=== PATIENT | female | born 1995 | race Caucasian/White ===

== ENCOUNTER 2023-11-24 12:46 | Observation (INO) | payer BC, SELFPAY ==
[2023-11-24 12:54] VITALS: BP 135/88; BMI 34.4
[2023-11-24 13:55] LABS: Urine Albumin 2+ (Neg - Trace); Urine Bilirubin 1+ (Negative); Urine Character Slightly Cloudy (Clear); Urine Color Red; Urine Glucose Negative (Negative); Urine Ketone 1+ (Negative); Urine Leukocyte 1+ (Negative); Urine Nitrite Positive (Negative); Urine Occult Blood 4+ (Negative); Urine Urobilinogen Negative (Neg - 1+)
[2023-11-24 14:34] LABS: Urine Bacteria Many (Negative); Urine Mucus Few; Urine Red Blood Cell >100 /HPF (0-2); Urine White Cell 26-30 /HPF (0-5)
[2023-11-24] MEDS: ROCEPHIN 1.42860000000000009 MG IM (15:49)
== END 2023-11-24 15:56 | disposition home or self-care (01) ==
LOC: LDRP 12:46
PROVIDERS: ADMITTING PHYSICIAN Obstetrics & Gynecology
DX: O23.43 Unspecified infection of urinary tract in pregnancy, third trimester (principal); R10.9 Unspecified abdominal pain; J30.89 Other allergic rhinitis; J30.81 Allergic rhinitis due to animal (cat) (dog) hair and dander; Z3A.38 38 weeks gestation of pregnancy; Z87.440 Personal history of urinary (tract) infections; N39.0 Urinary tract infection, site not specified; R31.9 Hematuria, unspecified; O36.8330 Maternal care for abnormalities of the fetal heart rate or rhythm, third trimester, not applicable or unspecified
CPT/HCPCS: 81003; 81015; 87086; G0378

== ENCOUNTER 2023-12-02 18:58 | Inpatient (IN) | payer BC, SELFPAY ==
[2023-12-02 19:36] LABS: % Basophils 0.3 % (0-2); % Eosinophils 0.9 % (0-6); % Immature Granulocytes 1.9 % (0-0.5); % Lymphocytes 13.6 % (20.5-51.1); % Neutrophils 76.3 % (42.2-75.2); Absolute Eosinophils 0.1 10^3/uL (0-0.7); Absolute Immature Granulocytes 0.2 10^3/uL (0-0.05); Absolute Lymphocytes 1.6 10^3/uL (1.2-3.4); Absolute Monocytes 0.8 10^3/uL (0.1-0.6); Absolute Neutrophils 9.2 10^3/uL (1.4-6.5); Hematocrit 30.9 % (37.0-47.0); Hemoglobin 10.9 g/dL (12.0-16.0); Mean Corp Hgb Conc. 35.3 g/dL (33.0-37.0); Mean Corpuscular Hgb 30.7 pg (27.0-31.0); Mean Platelet Volume 11.8 fL (7.4-10.4); Nucleated Red Blood Cells % 0 %; Platelet Count 198 10^3/uL (130-400); Red Blood Cell Count 3.55 10^6/uL (4.20-5.40); Red Cell Dist. Width 13.3 % (11.5-14.5)
[2023-12-02 19:39] VITALS: BP 137/79; BMI 34.5
[2023-12-02] MEDS: CYTOTEC 50 MICROGRAM VAG (19:52)
[2023-12-03] MEDS: MORPHINE SULFATE 2 MG IV (03:27)
[2023-12-03] MEDS: LR 1000 IV ×3 (08:15→21:36)
[2023-12-03] MEDS: SUBLIMAZE 100 MCG EPIDURAL (08:16)
[2023-12-03] MEDS: FENTANYL/BUPIVACAINE 100 EPIDURAL ×3 (08:16→22:59)
[2023-12-03] MEDS: PITOCIN 30 UNITS/NSS 500 ML IV (11:22)
[2023-12-04] MEDS: XYLOCAINE-MPF 1% VIAL 30 ML INFIL (02:22)
[2023-12-04] MEDS: PITOCIN 30 UNITS/NSS 500 ML IV (02:23)
[2023-12-04] MEDS: METHERGINE INJECTION 0.200000000000000011 MG IM (02:41)
[2023-12-04] MEDS: PRENATAL PLUS 1 TABLET PO (09:51)
[2023-12-04] MEDS: SENOKOT-S 1 TABLET PO (09:51)
[2023-12-04] MEDS: FEOSOL 325 MG PO (09:51)
[2023-12-04] MEDS: MOTRIN 600 MG PO ×2 (12:12→22:38)
[2023-12-04] MEDS: TYLENOL 650 MG PO ×2 (12:13→22:38)
[2023-12-05 03:11] LABS: Hematocrit 31.3 % (37.0-47.0); Hemoglobin 10.5 g/dL (12.0-16.0)
[2023-12-05] MEDS: PRENATAL PLUS 1 TABLET PO (08:25)
[2023-12-05] MEDS: FEOSOL 325 MG PO (08:25)
[2023-12-05] MEDS: MOTRIN 600 MG PO (20:42)
[2023-12-06] MEDS: PRENATAL PLUS 1 TABLET PO (08:24)
[2023-12-06] MEDS: FEOSOL 325 MG PO (08:24)
[2023-12-06] MEDS: SENOKOT-S 1 TABLET PO (08:24)
[2023-12-11 13:41] LABS: Syphilis/T. pallidum Ab Reflex Negative (Negative)
== END 2023-12-06 11:00 | disposition home or self-care (01) | DRG 807 ==
LOC: LDRP 18:58
PROVIDERS: Obstetrics & Gynecology; ADMITTING PHYSICIAN Obstetrics & Gynecology; FAMILY PHYSICIAN Family Medicine
PROC: 3E0P7VZ Introduction of Hormone into Female Reproductive, Via Natural or Artificial Opening (ICD-10-PCS; 2023-12-02)
PROC: 3E033VJ Introduction of Other Hormone into Peripheral Vein, Percutaneous Approach (ICD-10-PCS; 2023-12-03)
PROC: 0W8NXZZ Division of Female Perineum, External Approach (ICD-10-PCS; 2023-12-04)
PROC: 10D07Z6 Extraction of Products of Conception, Vacuum, Via Natural or Artificial Opening (ICD-10-PCS; 2023-12-04)
PROC: 0KQM0ZZ Repair Perineum Muscle, Open Approach (ICD-10-PCS; 2023-12-04)
DX: O69.81X0 Labor and delivery complicated by cord around neck, without compression, not applicable or unspecified (principal); Z37.0 Single live birth; O70.1 Second degree perineal laceration during delivery; Z3A.39 39 weeks gestation of pregnancy
CPT/HCPCS: 36415; 85014; 85018; 85025; 86780; 86850; 86900; 86901